=== PATIENT | male | born 1975 ===

== ENCOUNTER → 2018-03-28 18:11 | Outpatient (REF) | payer OTHER, SELFPAY ==
[2018-04-02 13:40] LABS: Rapid Plasma Reagin NON-REACTIVE
== END ==
LOC: LAB 18:11
PROVIDERS: Visit Provider Family Medicine Adult Medicine
DX: Z00.00 Encounter for general adult medical examination without abnormal findings (principal)
CPT/HCPCS: 86480; 86592; 87591